=== PATIENT | female | born 1965 | race Caucasian/White ===

== ENCOUNTER 2019-02-03 18:22 | Emergency (ER) | payer MEDICARE, MEDICAID ==
[~2019-02-03] VITALS: Ht 177.8 cm; Wt 99.8 kg
--- NOTE | 2019-02-03 18:57 | PHYS DOC ---
Adult General Chief Complaint Chief Complaint: NAUSEA/VOMITING/DIARRHEA HPI HPI 53-year-old female presents with nausea and vomiting for the last 2 days. She had some vomiting yesterday, but today she is unable to keep anything down including water and her Zofran tablets. If she swallows almost anything, she started vomiting. She has had chills, but no measured fever. The patient has ileostomy bag for the last 30 years and it is working properly. She is not be complaints with it. She has had an intermittent cough, but she is a smoker with COPD diagnosis. She denies change in sputum. Review of Systems Review of Systems Constitutional: Denies fever or chills [] Eyes: Denies change in visual acuity, redness, or eye pain [] HENT: Denies nasal congestion or sore throat [] Respiratory: Denies cough or shortness of breath [] Cardiovascular: No additional information not addressed in HPI [] GI: Generalized abdominal pain, nausea, vomiting. [] : Denies dysuria or hematuria [] Musculoskeletal: Denies back pain or joint pain [] Integument: Denies rash or skin lesions [] Neurologic: Denies headache, focal weakness or sensory changes [] Endocrine: Denies polyuria or polydipsia [] All other systems were reviewed and found to be within normal limits, except as documented in this note. Current Medications Current Medications Current Medications Medications (Trade) Dose Ordered Sig/Suzette Start Time Stop Time Status Last Admin Dose Admin Ondansetron HCl (Zofran) 4 mg 1X ONCE 02/03/19 18:30 02/03/19 18:31 UNV Sodium Chloride 1,000 ml @ 1,000 mls/hr 1X ONCE 02/03/19 18:30 02/03/19 19:29 UNV Physical Exam Physical Exam Constitutional: Well developed, well nourished, mild acute distress, non-toxic appearance. [] HENT: Normocephalic, atraumatic, bilateral external ears normal, oropharynx moist, no oral exudates, nose normal. [] Eyes: PERRLA, EOMI, conjunctiva normal, no discharge. [] Neck: Normal range of motion, no tenderness, supple, no stridor. [] Cardiovascular:Heart rate regular rhythm, no murmur [] Lungs & Thorax: Bilateral breath sounds clear to auscultation [] Abdomen: Bowel sounds normal, soft, no tenderness, no masses, no pulsatile masses. Ostomy bag in place and functioning with no complications[] Skin: Warm, dry, no erythema, no rash. [] Back: No tenderness, no CVA tenderness. [] Extremities: No tenderness, no cyanosis, no clubbing, ROM intact, no edema. [] Neurologic: Alert and oriented X 3, normal motor function, normal sensory function, no focal deficits noted. [] Psychologic: Affect normal, judgement normal, mood normal. [] EKG EKG [] Radiology/Procedures Radiology/Procedures [] Course & Med Decision Making Course & Med Decision Making Pertinent Labs and Imaging studies reviewed. (See chart for details) The patient's labs are significant for elevated white count of 15. She had evidence of some hemoconcentration in general. I gave her a liter of normal saline, 4 mg of Zofran IV, an additional 10 mg of Compazine IV to control vomiting. After her fluids, she was feeling much better. She had a by mouth challenge and was able to orally rehydrate. She would like to go home. She already has Zofran at home and will take it on a scheduled basis to control her vomiting for the next day or 2. If she is unable to keep down fluids, she will return to the emergency room. She is stable for discharge at this time. She likely has a viral illness. [] Dragon Disclaimer Dragon Disclaimer This electronic medical record was generated, in whole or in part, using a voice recognition dictation system. Departure Departure: Impression: Primary Impression: Viral gastritis Additional Impression: Nausea & vomiting Disposition: 01 HOME, SELF-CARE Condition: IMPROVED Referrals: PCPTYREL (PCP) Patient Instructions: Nausea and Vomiting, [id number] Problem Qualifiers Additional Impression: Nausea & vomiting Vomiting type: unspecified Vomiting Intractability: intractable Qualified Codes: R11.2 - Nausea with vomiting, unspecified VIVEK VALDEZ DO Feb 03, 2019 18:57
[2019-02-03] MEDS: IV NORMAL SALINE 1,000ML 1,000 ML IV ONE (19:03)
[2019-02-03] MEDS: ONDANSETRON PF 4 MG/2 ML VIAL. IVP ONE (19:03)
[2019-02-03 19:26] LABS: BASO # 0.1 x10^3/uL (0.0-0.2); BASO % 1 % (0-3); EOS # 0.3 x10^3/uL (0.0-0.7); EOS % 2 % (0-3); HEMATOCRIT 47.9 % (36.0-47.0); HEMOGLOBIN 15.7 g/dL (12.0-15.5); LYMPH # 1.1 x10^3/uL (1.0-4.8); LYMPH % 8 % (24-48); MEAN CORPUSCULAR HEMOGLOBIN 28 pg (25-35); MEAN CORPUSCULAR HGB CONC 33 g/dL (31-37); MEAN CORPUSCULAR VOLUME 87 fL (79-100); MONO # 1.2 x10^3/uL (0.0-1.1); MONO % 8 % (0-9); NEUT # 12.3 x10^3uL (1.8-7.7); NEUT % 82 % (31-73); PLATELET COUNT 307 x10^3/uL (140-400); RED BLOOD COUNT 5.53 x10^6/uL (3.50-5.40); RED CELL DISTRIBUTION WIDTH 16.3 % (11.5-14.5)
[2019-02-03] MEDS ORDERED: PROCHLORPERAZINE 10 MG/2 ML VIAL. ONE (20:05)
[2019-02-03 20:07] LABS: CALCIUM 8.7 mg/dL (8.5-10.1); CREATININE 1.5 mg/dL (0.6-1.0); GFR 36.2; POTASSIUM 3.8 mmol/L (3.5-5.1)
[2019-02-03] MEDS: PROCHLORPERAZINE 10 MG/2 ML VIAL. IV ONE (20:08)
[2019-02-03 20:13] LABS: ALBUMIN 3.3 g/dL (3.4-5.0); ALBUMIN/GLOBULIN RATIO 0.8 (1.0-1.7); TOTAL BILIRUBIN 0.4 mg/dL (0.2-1.0); TOTAL PROTEIN 7.4 g/dL (6.4-8.2)
[2019-02-03 21:01] VITALS: BP 125/72
== END 2019-02-03 21:04 | disposition home or self-care (01) ==
LOC: ER 18:22
DX: A08.4 Viral intestinal infection, unspecified (principal)
CPT/HCPCS: 36415; 80053; 85025; 85610; 85730; 96361; 96374; 96375; 99284; J0780; J2405; J7030

== ENCOUNTER 2019-07-08 20:41 | Observation (INO) | payer MEDICARE, MEDICAID ==
[~2019-07-08] VITALS: Ht 167.6 cm; Wt 102.0 kg
--- NOTE | 2019-07-08 20:48 | PHYS DOC ---
Past History Past Medical History: Anxiety, Arthritis, Bronchitis, COPD, GERD, Hypertension, IBS, Other Past Medical History Familial Adenomatous Polyposis Past Surgical History: Colectomy, Other Additional Past Surgical Histo: Ileostomy, reconstructive surgery, peritonitis, ulcer on left leg for 1 mon Smoking: Cigarettes Alcohol Use: Occasionally Drug Use: Marijuana General Adult HPI: HPI: ".. I kavon hurting to day... Actually started yesterday,,,.. Been seeing... Vijay for care but now seen Dr. Mariee... I have been really nauseated and vomiting today.. Patient is a 54 year old female who presents with above hx and complaints of nausea and vomiting. Subjective complaints of fever and chills. Does have a nonproductive cough but just recently quit smoking. Patient has extensive medical history with recurrent episodes of ileus, bronchitis, COPD, DVTs, pulmonary embolisms, obesity, anemia, and deconditioning. Patient had cholecystectomy in 1993 for Familial Adenomatous Polyposis. Patient denies any intake of bad food. No recent travel outside the [facility]. No specific ill contacts. Does have a strong family history with mother, sister, brother, grandchildren all have Familial Adenomatous Polyposis. Patient currently follows with Dr. Bentley. Review of Systems: Review of Systems: Constitutional: Denies fever or chills Eyes: Denies change in visual acuity HENT: Denies nasal congestion or sore throat Respiratory: Denies cough or shortness of breath Cardiovascular: Denies chest pain or edema GI: Complains of abdominal pain, nausea, vomiting,. Denies bloody stools or diarrhea : Denies dysuria Musculoskeletal: Denies back pain or joint pain Integument: Denies rash Neurologic: Denies headache, focal weakness or sensory changes Endocrine: Denies polyuria or polydipsia Lymphatic: Denies swollen glands Psychiatric: Denies depression or anxiety Heart Score: HEART Score for Chest Pain: HEART Score for Chest Pain Response (Comments) Value History Slighlty/Non-Suspicious 0 ECG Nonspecific Repolarizatio 1 Age >45 - < 65 1 Risk Factors 1 or 2 Risk Factors 1 Troponin < Normal Limit 0 Total 3 Risk Factors: Risk Factors: DM, Current or recent (<one month) smoker, HTN, HLP, family history of CAD, obesity. Risk Scores: Score 0 - 3: 2.5% MACE over next 6 weeks - Discharge Home Score 4 - 6: 20.3% MACE over next 6 weeks - Admit for Clinical Observation Score 7 - 10: 72.7% MACE over next 6 weeks - Early Invasive Strategies Family History: Family History: Multiple family members Familial Adenomatosis Polyposis Current Medications: Current Meds: See nursing for home meds Allergies: Allergies: Allergies Coded Allergies Type Severity Reaction Last Updated Verified Penicillins Allergy Intermediate 02/03/19 Yes Physical Exam: PE: Constitutional: Moderate acute distress, non-toxic appearance. [] HENT: Normocephalic, atraumatic, bilateral external ears normal, oropharynx dry, no oral exudates, nose normal. [] Eyes: PERRLA, EOMI, conjunctiva normal, no discharge. [] Neck: Normal range of motion, no tenderness, supple, no stridor. [] Cardiovascular: Tachycardia heart rate regular rhythm, no murmur [] PMI to the left Lungs & Thorax: Bilateral breath sounds equal at apex with scattered wheezes on auscultation [] Abdomen: Bowel sounds hyperactive, soft, generalized tenderness, distention, tympanic,, no masses, no pulsatile masses. Multiple surgery scars. Ileostomy, does have rebound to the left upper mid quadrant. Skin: Warm, dry, no erythema, no rash. [Poor turgor] Back: No tenderness, no CVA tenderness. [] Extremities: No tenderness, no cyanosis, no clubbing, ROM intact, venous stasis and lower leg edema. [No true psoas sign.] Neurologic: Alert and oriented X 3, n moves extremities on request, does have distal sensory,, no focal deficits noted. [] Psychologic: Affect anxious, judgement normal, mood normal. [] EKG: EKG: My interpretation EKG shows a sinus rhythm at 92 bpm. There is bimodal P waves. Right axis. No findings of acute STEMI of contralateral changes. [] Radiology/Procedures: Radiology/Procedures: [][address] [address] IMAGING REPORT Signed PATIENT: SARAH CARRILLO IACCOUNT: [id number] : 1965 LOCATION: ER AGE: 54 SEX: F EXAM STATUS: REG ER ORD. PHYSICIAN: LIZZY RIOS MD REASON: Omni 240,30ml PO.Ileus.Hx Ileostomy PROCEDURE: CT ABD PEL W/ORAL CONTRST ONLY EXAM: CT ABDOMEN/PELVIS WITHOUT CONTRAST. HISTORY: Ileus. TECHNIQUE: Computed tomography of the abdomen and pelvis was performed without intravenous contrast. One or more of the following individualized dose reduction techniques were utilized for this examination: 1. Automated exposure control. 2. Adjustment of the mA and/or kV according to patient size. 3. Use of iterative reconstruction technique. COMPARISON: None. FINDINGS: Lung windows through the visualized portions of the bases reveal mild atelectasis. Bone windows reveal no suspicious lesions. Hypoattenuation of the hepatic parenchyma is consistent with at least mild diffuse hepatic steatosis. The spleen, pancreas, adrenal glands, gallbladder and kidneys are unremarkable without contrast. A calcification along the left proximal ureter appears mural rather than intraluminal. The colon is been resected with the right lower quadrant ileostomy. An ileal J pouch may be diverted. The small bowel is relatively clumped within the midline abdomen, with multiple loops are adherent to the anterior abdominal wall. Multiple angulated loops in the left of midline indicated adhesions. Contrast has progressed through the mid jejunum but not beyond that. Multiple partial transition points are noted, but there is some gas distally. Venous collaterals are noted bilaterally along the anterior abdominal wall. Another is noted in the left retroperitoneum. IMPRESSION: 1. The majority of the small bowel is relatively clumped in the midabdomen, consistent with extensive adhesions. This results in multiple partial transition points. There is no clear high-grade obstruction. Correlate with ostomy output. 2. Correlate for total colectomy with an ileal J-pouch which is now diverted to a right lower quadrant ostomy. 3. Diffuse hepatic steatosis. Electronically signed by: Luis Angel Feldman MD (07/09/2019 1:50 AM) [facility] DICTATED AND SIGNED BY: VINCE FELDMAN MD DATE: 07/09/19149 CC: CHARBEL BENTLEY MD; LIZZY RIOS MD ~ [address] [address] IMAGING REPORT Signed PATIENT: SARAH CARRILLO IACCOUNT: [id number] : 1965 LOCATION: ER AGE: 54 SEX: F EXAM STATUS: REG ER ORD. PHYSICIAN: LIZZY RIOS MD REASON: NAUSEA,VOMITING.HX ILEOSTOMY PROCEDURE: ACUTE ABDOMEN SERIES EXAM: Abdomen acute complete. HISTORY: Nausea, vomiting and pain. COMPARISON: None. FINDINGS: A frontal view the chest and frontal upright and supine views of the abdomen are obtained. There is no infiltrate, pleural effusion or pneumothorax. The heart is normal in size. There are nonspecific air-filled loops of bowel throughout the abdomen. There is no free air. There is no transition point to suggest obstruction. There are surgical clips overlying the pelvis. IMPRESSION: 1. Prominent air-filled loops of bowel throughout the abdomen. There is no transition point to suggest obstruction. 2. No acute pulmonary finding. Electronically signed by: Trinidad Rosado MD (07/08/2019 9:38 PM) [facility] DICTATED AND SIGNED BY: TRINIDAD ROSADO MD DATE: 07/08/192137 CC: CHARBEL BENTLEY MD; LIZZY RIOS MD ~ Course & Med Decision Making: Course & Med Decision Making Pertinent Labs and Imaging studies reviewed. (See chart for details) Pt.admitted to Dr. Bentley.. Plan to keep patient n.p.o. for at least 24 hours and slowly advance clear fluids. Advised patient that she may need transfer to [facility] or hospital that can supply surgical support if this partially ileus does not clear. Patient insisting on at least attempting to be admitted here first. Patient states she has had multiple episodes of bowel Ileus, all have cleared with npo, or clear fluids and IV hydration. Impression: 1. Abdomen Pain 2. Leukocytosis 19.3 with 78 segs 3. Therapeutic INR 2.9 4. Mild dehydration 5. Creatinine 1.8 6. Elevated lactic acid 2.3 7. Nausea and vomiting 8. Partial Small Bowel Ileus- Multiple Adhesions 9. Dehydration [] Dragon Disclaimer: Dragon Disclaimer: This electronic medical record was generated, in whole or in part, using a voice recognition dictation system. Departure Departure: Disposition: 01 HOME/RESIDENCE PRIOR TO ADM Condition: STABLE Referrals: CHARBEL BENTLEY MD (PCP) Shiva Disclaimer This chart was dictated in whole or in part using Voice Recognition software in a busy, high-work load, and often noisy Emergency Department environment. It m ay contain unintended and wholly unrecognized errors or omissions. Dragon Disclaimer This chart was dictated in whole or in part using Voice Recognition software in a busy, high-work load, and often noisy Emergency Department environment. It may contain unintended and wholly unrecognized errors or omissions. Dragon Disclaimer This chart was dictated in whole or in part using Voice Recognition software in a busy, high-work load, and often noisy Emergency Department environment. It may contain unintended and wholly unrecognized errors or omissions. LIZZY RIOS MD July 08, 2019 20:48
[2019-07-08] MEDS ORDERED: ONDANSETRON PF 4 MG/2 ML VIAL. IVP ONE (21:00)
[2019-07-08] MEDS ORDERED: KETOROLAC 30 MG/ML VIAL. IVP ONE (21:00)
[2019-07-08] MEDS ORDERED: IV RINGERS SOLUTION,LACTATED 1,000 ML IV SCH (21:00)
[2019-07-08] MEDS ORDERED: FAMOTIDINE 20 MG/2 ML VIAL IVP ONE (21:00)
--- NOTE | 2019-07-08 21:02 | EKG ---
[address] [address] Test Date: 2019-07-08 Test Time: 20:58:08 Pat Name: SARAH CARRILLO Department: Room: Gender: F Advisor Consultant: : 1965 Requested By: LIZZY RIOS Order Number: [id number] Reading MD: Rj Pierre Measurements Intervals Biddle Rate: 92 P: 15 MS: 162 QRS: 102 QRSD: 78 T: 56 QT: 362 QTc: 453 Interpretive Statements SINUS RHYTHM LEFT ATRIAL ABNORMALITY Electronically Signed On 07-10-2019 15:46:53 CDT by Rj Pierre
--- NOTE | 2019-07-08 21:41 | RAD ---
EXAM: Abdomen acute complete. HISTORY: Nausea, vomiting and pain. COMPARISON: None. FINDINGS: A frontal view the chest and frontal upright and supine views of the abdomen are obtained. There is no infiltrate, pleural effusion or pneumothorax. The heart is normal in size. There are nonspecific air-filled loops of bowel throughout the abdomen. There is no free air. There is no transition point to suggest obstruction. There are surgical clips overlying the pelvis. IMPRESSION: 1. Prominent air-filled loops of bowel throughout the abdomen. There is no transition point to suggest obstruction. 2. No acute pulmonary finding. Electronically signed by: Trinidad Sandhu MD (07/08/2019 9:38 PM) [facility]
[2019-07-08 22:11] LABS: BASO % 0 % (0-3); CALCIUM 9.6 mg/dL (8.5-10.1); CREATININE 1.8 mg/dL (0.6-1.0); EOS # 0.1 x10^3/uL (0.0-0.7); EOS % 1 % (0-3); GFR 29.2; HEMATOCRIT 47.4 % (36.0-47.0); HEMOGLOBIN 15.5 g/dL (12.0-15.5); LYMPH # 1.1 x10^3/uL (1.0-4.8); LYMPH % 6 % (24-48); MEAN CORPUSCULAR HEMOGLOBIN 29 pg (25-35); MEAN CORPUSCULAR HGB CONC 33 g/dL (31-37); MEAN CORPUSCULAR VOLUME 90 fL (79-100); MONO # 1.6 x10^3/uL (0.0-1.1); MONO % 9 % (0-9); NEUT # 16.4 x10^3uL (1.8-7.7); NEUT % 85 % (31-73); PLATELET COUNT 322 x10^3/uL (140-400); RED BLOOD COUNT 5.25 x10^6/uL (3.50-5.40); RED CELL DISTRIBUTION WIDTH 17.2 % (11.5-14.5); WHITE BLOOD COUNT 19.3 x10^3/uL (4.0-11.0)
[2019-07-08 22:23] LABS: ALBUMIN 3.9 g/dL (3.4-5.0); DIRECT BILIRUBIN 0.2 mg/dL (0.0-0.2); TOTAL BILIRUBIN 0.9 mg/dL (0.2-1.0); TOTAL PROTEIN 8.4 g/dL (6.4-8.2)
[2019-07-08 22:47] LABS: % BANDS 6 % (0-9); % EOS 1 % (0-5); % LYMPHS 3 % (24-48); % MONOS 12 % (0-10); % SEGS 78 % (35-66)
[2019-07-08 22:48] LABS: PLT ESTIMATE ADEQUATE (ADEQUATE)
[2019-07-08] MEDS ORDERED: IOHEXOL 240 MG/ML 50ML VIAL. ONE (23:34)
[2019-07-08] MEDS ORDERED: IV RINGERS SOLUTION,LACTATED 1,000 ML IV ONE (23:45)
[2019-07-09 00:12] LABS: BARBITURATES NEG (NEG); BENZODIAZEPINES POS (NEG); CANNABINOIDS POS (NEG); COCAINE NEG (NEG); METHADONE NEG (NEG); OPIATES NEG (NEG); PHENCYCLIDINE NEG (NEG)
[2019-07-09 00:14] LABS: AMPHETAMINE/METHAMPHETAMINE NEG (NEG)
[2019-07-09 00:18] LABS: BACTERIA,URINE FEW /HPF (0-FEW); BILIRUBIN,URINE NEG (NEG); CLARITY,URINE HAZY; COLOR,URINE YELLOW; GLUCOSE,URINE NEG (NEG); NITRITE,URINE POS (NEG); RBC,URINE 0 /HPF (0-2); SQUAMOUS EPITHELIAL CELL,UR MOD /LPF; WBC,URINE OCC /HPF (0-4)
--- NOTE | 2019-07-09 01:53 | RAD ---
EXAM: CT ABDOMEN/PELVIS WITHOUT CONTRAST. HISTORY: Ileus. TECHNIQUE: Computed tomography of the abdomen and pelvis was performed without intravenous contrast. One or more of the following individualized dose reduction techniques were utilized for this examination: 1. Automated exposure control. 2. Adjustment of the mA and/or kV according to patient size. 3. Use of iterative reconstruction technique. COMPARISON: None. FINDINGS: Lung windows through the visualized portions of the bases reveal mild atelectasis. Bone windows reveal no suspicious lesions. Hypoattenuation of the hepatic parenchyma is consistent with at least mild diffuse hepatic steatosis. The spleen, pancreas, adrenal glands, gallbladder and kidneys are unremarkable without contrast. A calcification along the left proximal ureter appears mural rather than intraluminal. The colon is been resected with the right lower quadrant ileostomy. An ileal J pouch may be diverted. The small bowel is relatively clumped within the midline abdomen, with multiple loops are adherent to the anterior abdominal wall. Multiple angulated loops in the left of midline indicated adhesions. Contrast has progressed through the mid jejunum but not beyond that. Multiple partial transition points are noted, but there is some gas distally. Venous collaterals are noted bilaterally along the anterior abdominal wall. Another is noted in the left retroperitoneum. IMPRESSION: 1. The majority of the small bowel is relatively clumped in the midabdomen, consistent with extensive adhesions. This results in multiple partial transition points. There is no clear high-grade obstruction. Correlate with ostomy output. 2. Correlate for total colectomy with an ileal J-pouch which is now diverted to a right lower quadrant ostomy. 3. Diffuse hepatic steatosis. Electronically signed by: Luis Angel Feldman MD (07/09/2019 1:50 AM) [facility]
[2019-07-09] MEDS ORDERED: ACETAMINOPHEN 325 MG TABLET PO PRN (02:45)
[2019-07-09] MEDS ORDERED: ONDANSETRON PF 4 MG/2 ML VIAL. IVP PRN (02:45)
[2019-07-09] MEDS ORDERED: MORPHINE SULFATE 10 MG/ML SYRINGE. SQ PRN (02:45)
[2019-07-09] MEDS ORDERED: IPRATRPIUM/ALBUTEROL 0.5/2.5MG 3 ML NEBU. ONE (03:02)
[2019-07-09 03:50] VITALS: BP 98/70
[2019-07-09] MEDS: IV RINGERS SOLUTION,LACTATED 1,000 ML IV SCH ×3 (03:53→12:45)
[2019-07-09] MEDS ORDERED: BUPR-192 PO (04:06)
[2019-07-09] MEDS ORDERED: ONDA4TAB12 SL (04:06)
[2019-07-09] MEDS ORDERED: SERT50TA8 PO (04:06)
[2019-07-09] MEDS ORDERED: FURO20TA3 PO (04:06)
[2019-07-09] MEDS ORDERED: CETI10TA16 PO (04:06)
[2019-07-09] MEDS ORDERED: CYCL-331 PO (04:06)
[2019-07-09] MEDS ORDERED: PANT20TA3 PO (04:06)
[2019-07-09] MEDS ORDERED: PRAV20TA2 PO (04:06)
[2019-07-09] MEDS ORDERED: WARF1TAB74 PO (04:06)
[2019-07-09] MEDS ORDERED: GABA100C81 PO (04:06)
[2019-07-09] MEDS ORDERED: ASPI81TA59 PO (04:06)
[2019-07-09] MEDS ORDERED: TAMS0.4C97 PO (04:06)
[2019-07-09] MEDS ORDERED: WARF-78 PO (04:06)
[2019-07-09] MEDS ORDERED: GABA100C6 PO (04:06)
[2019-07-09] MEDS ORDERED: ALBU2.5V14 NEB (04:08)
[2019-07-09] MEDS: IPRATRPIUM/ALBUTEROL 0.5/2.5MG 3 ML NEBU. NEB SCH ×2 (04:27→09:25)
[2019-07-09 05:01] VITALS: BP 111/72
[2019-07-09 10:31] VITALS: BP 118/76
--- NOTE | 2019-07-09 22:05 | HP ---
ADMIT DATE: 07/09/2019 HISTORY OF PRESENT ILLNESS: A 54-year-old female who came in with severe nausea and vomiting. The patient also has had some fever and chills, but basically had a nonproductive cough, recently quit smoking; however, she says she has been drinking heavily lately and as a result of that became increasingly dehydrated and experienced severe abdominal pain. She came in for basically fluids and hydration for her abdominal pain. PAST MEDICAL HISTORY: The patient has had heart attacks, coronary artery disease, vascular surgery, ____ anticoagulant therapy, ____ hypertension, DVT, COPD. She has an ileostomy, change in bowel patterns, hysterectomy, alcohol abuse, depression, smoking and smoking exposure. She has had history of DVT, Radha filter in her leg. FAMILY HISTORY: Positive for heart disease and aneurysms as well as strokes. ALLERGIES: PENICILLIN. MEDICATIONS: The reconciliation of medications was noted in the chart as noted above including Zyrtec, albuterol, Flomax, cyclobenzaprine, warfarin, pravastatin, aspirin, and gabapentin. SOCIAL HISTORY: The patient has a [id number] history of smoking. Occasionally goes on binge drinking. CODE STATUS: Full code. REVIEW OF SYSTEMS: Positive for nausea and vomiting. Otherwise, basically unremarkable. Denies any headaches, visual changes. Does have abdominal pain. PHYSICAL EXAMINATION: GENERAL: This is a pleasant white female, moderate amount of discomfort. VITAL SIGNS: Blood pressure 98/70, respiratory rate 18, pulse 100, afebrile. HEENT: The patient's head was atraumatic, normocephalic. Eyes: PERRLA without jaundice. The mouth and throat: Normal. NECK: Supple. LUNGS: Diminished, but clear. CARDIOVASCULAR: Regular sinus rhythm, S1, S2, without murmur, rub, or extra heart sounds. ABDOMEN: Soft, nontender, no rebound or guarding. Positive bowel sounds. Ileostomy in place. EXTREMITIES: No clubbing, cyanosis or edema. NEUROLOGIC: Intact. LABORATORY DATA: The patient's labs were reviewed. She did have an elevated white count. The patient was extremely dehydrated. Toxicology report shows use of marijuana as well as benzos. The patient was admitted and placed on IV hydration and the like. The patient was admitted and placed on IV fluids. The patient's CT scan, no obvious lesion. The patient did note on her CT scan multiple adhesions. IMPRESSION: Therefore of possible ileus with small-bowel obstruction, adhesions, history of alcohol abuse and other drug usage. The patient's dehydration was the cause of most of her problems. The patient's INR was 2.9. PLAN: The patient will be monitored carefully, brought in as an outpatient as well. ____ in for observation, placed on IV fluids and rehydrated. The patient felt remarkably better and was able to eat and drink later on. CHARBEL BENTLEY MD DR: MELISSA/manoj JOB#: [id number] / [id number]
== END 2019-07-09 12:55 | disposition home or self-care (01) ==
LOC: ER 20:41 → 1 SOUTH 07-09 02:30 → INTOOBSV 07-09 02:30
PROVIDERS: ADMIT Family Medicine; ATTEND Family Medicine
DX: K56.7 Ileus, unspecified (principal); K56.50 Intestinal adhesions [bands], unspecified as to partial versus complete obstruction; F41.9 Anxiety disorder, unspecified; K21.9 Gastro-esophageal reflux disease without esophagitis; R11.2 Nausea with vomiting, unspecified; F32.9 Major depressive disorder, single episode, unspecified; K58.9 Irritable bowel syndrome, unspecified; J44.9 Chronic obstructive pulmonary disease, unspecified; E66.9 Obesity, unspecified; M19.90 Unspecified osteoarthritis, unspecified site; D72.829 Elevated white blood cell count, unspecified; E86.0 Dehydration; I25.10 Atherosclerotic heart disease of native coronary artery without angina pectoris; I10 Essential (primary) hypertension; K76.0 Fatty (change of) liver, not elsewhere classified; Z86.718 Personal history of other venous thrombosis and embolism; Z87.891 Personal history of nicotine dependence; Z86.711 Personal history of pulmonary embolism; Z88.0 Allergy status to penicillin; Z68.36 Body mass index [BMI] 36.0-36.9, adult; Z79.899 Other long term (current) drug therapy
CPT/HCPCS: 36415; 74022; 74176; 80048; 80076; 80307; 81001; 82150; 82550; 83605; 83690; 84484; 85007; 85025; 85610; 85730; 87040; 87086; 87205; 93005; 94640; 96361; 96365; 96366; 96368; 96375; 99285; G0378; G0379; J1885; J1956; J2405; J3490; J7120

== ENCOUNTER 2020-03-06 00:11 | Emergency (ER) | payer MEDICARE, MEDICAID ==
[~2020-03-06] VITALS: Ht 167.6 cm; Wt 102.0 kg
[~2020-03-06 00:11] MED LIST changes: -ORPH-16 PO; -PRED20TA PO
[2020-03-06] MEDS ORDERED: ORPHENADRINE CITRATE 60 MG/2 ML VIAL. IM ONE (00:45)
[2020-03-06] MEDS ORDERED: DEXAMETHASONE 4 MG TABLET PO ONE (00:45)
[2020-03-06] MEDS ORDERED: PRED20TA PO (00:48)
[2020-03-06] MEDS ORDERED: ORPH-16 PO (00:48)
--- NOTE | 2020-03-06 00:48 | PHYS DOC ---
Past History Past Medical History: Anxiety, Arthritis, Bronchitis, COPD, GERD, Hypertension, IBS, Other Additional Past Medical Histor: PE Past Surgical History: Colectomy, Other Additional Past Surgical Histo: Ileostomy, reconstructive surgery, peritonitis, ulcer on left leg for 1 mon Smoking: Quit Greater Than 1 Year Alcohol Use: Occasionally Drug Use: Marijuana General Adult EDM: Chief Complaint: OTHER COMPLAINTS HPI: HPI: 54-year-old female presents with report of "pain all over ". Patient reports she has a history of arthritis and seems to be experiencing exacerbation of her chronic pain to her right shoulder, back, right knee, and left wrist. Patient reports she was sent by her PCP to follow-up with a specialist in arthritis at but does not have an appointment until 05/15/2020. Patient reports she took Tylenol at 1730 without improvement. Reports is unable to take anti-inflammatories due to use of Coumadin. Reports history of DVTs. Denies recent trauma. Review of Systems: Review of Systems: Constitutional: Denies fever or chills Eyes: Denies redness or eye pain HENT: Denies nasal congestion or sore throat Respiratory: Denies cough or shortness of breath Cardiovascular: Denies chest pain or palpitations GI: Denies abdominal pain, nausea, or vomiting : Denies dysuria or hematuria Musculoskeletal: Reports right shoulder pain, right knee pain, left wrist pain, and back pain Integument: Denies rash or skin lesions Neurologic: Denies headache, focal weakness or sensory changes Complete systems were reviewed and found to be within normal limits, except as documented in this note. Allergies: Allergies: Allergies Coded Allergies Type Severity Reaction Last Updated Verified Penicillins Allergy Intermediate 02/03/19 Yes Physical Exam: PE: Constitutional: Well developed, well nourished, no acute distress, non-toxic appearance HENT: Normocephalic, atraumatic Eyes: Conjunctiva normal, no discharge Neck: Normal range of motion, no tenderness, supple Lungs & Thorax: No respiratory distress, equal chest rise and fall Abdomen: Soft, no tenderness Skin: Warm, dry, no erythema, no rash Back: No midline tenderness, no CVA tenderness Extremities: No deformity, joints appear stable, reports pain to right shoulder, right knee, and left wrist Neurologic: Alert and oriented X 3, no focal deficits noted Psychologic: Affect normal, judgment normal EKG: EKG: [] Radiology/Procedures: Radiology/Procedures: [] Course & Med Decision Making: Course & Med Decision Making Patient presents with chronic pain which she reports is secondary to arthritis exacerbation. No history of recent trauma. Reports is unable to take anti- inflammatories secondary to use of Coumadin. Pain addressed with oral steroid and IM Norflex. Patient stable for discharge with outpatient follow-up with PCP/arthritis doctor. Discussed findings and plan with patient, who acknowledges understanding and agreement. Shiva Disclaimer: Shiva Disclaimer: This electronic medical record was generated, in whole or in part, using a voice recognition dictation system. Departure Departure: Impression: Primary Impression: Arthritis Additional Impression: Chronic pain Qualified Codes: G89.29 - Other chronic pain Disposition: DC HOME SELF CARE/HOMELESS Condition: STABLE Referrals: CHARBEL BENTLEY MD (PCP) Patient Instructions: Arthritis, Nonspecific, [id number], Chronic Pain Management Additional Instructions: Please follow up closely with your doctor regarding your chronic pain issues. Scripts Orphenadrine Citrate (ORPHENADRINE CITRATE) 100 Mg Tablet.er 1 TAB PO BID PRN for MUSCLE PAIN, #14 TAB 0 Refills Prov: CUONG HICKEY DO 03/06/20 Prednisone (PREDNISONE) 20 Mg Tablet 2 TAB PO DAILY for Inflammation, #8 TAB Start this medication tomorrow, Tuesday03/07/20 Prov: CUONG HICKEY DO 03/06/20 CUONG HICKEY DO Mar 06, 2020 00:48
[2020-03-06 01:20] VITALS: BP 144/84
== END 2020-03-06 01:20 | disposition home or self-care (01) ==
LOC: ER 00:11
DX: M19.90 Unspecified osteoarthritis, unspecified site (principal); G89.29 Other chronic pain; M25.511 Pain in right shoulder; M25.561 Pain in right knee; M25.532 Pain in left wrist; M54.89 Other dorsalgia; J44.9 Chronic obstructive pulmonary disease, unspecified; K21.9 Gastro-esophageal reflux disease without esophagitis; I10 Essential (primary) hypertension; K58.9 Irritable bowel syndrome, unspecified; Z87.891 Personal history of nicotine dependence; Z88.0 Allergy status to penicillin
CPT/HCPCS: 96372; 99283; J2360; J8540

== ENCOUNTER → 2020-03-06 | Outpatient (CLI) | payer MEDICARE, MEDICAID ==
[~2020-03-06] MED LIST: ALBU2.5V14 NEB; ASPI81TA59 PO; BUPR150T7 PO; CETI10TA16 PO; CYCL-331 PO; FURO20TA3 PO; GABA100C6 PO; GABA100C81 PO; ONDA4TAB12 SL; ORPH-16 PO; PANT20TA4 PO; PRAV20TA2 PO; PRED20TA PO; SERT50TA8 PO; TAMS0.4C97 PO; WARF1TAB2 PO; WARF5TAB2 PO
[2020-03-06 01:20] VITALS: BP 144/84
--- NOTE | 2020-03-06 15:03 | RAD ---
XR ELBOW COMPLETE 3+ VIEW DATE: 03/06/2020 10:59 AM INDICATION: ELBOW PAIN / Spl. Instructions: / History: COMPARISON: None. FINDINGS: Right: There is no evidence of acute fracture or dislocation. The joint spaces are normal. There is n o joint effusion. Left: There is no evidence of acute fracture or dislocation. The joint spaces are normal. There is no joint effusion. IMPRESSION: Normal exam Electronically signed by: Arya Stern MD (03/06/2020 3:00 PM) [id number]
== END ==
LOC: DXRAD 10:47
PROVIDERS: ATTEND Nurse Practitioner Family
DX: M19.022 Primary osteoarthritis, left elbow (principal); M19.021 Primary osteoarthritis, right elbow; M25.521 Pain in right elbow; M25.522 Pain in left elbow
CPT/HCPCS: 73080

== ENCOUNTER → 2020-04-18 | Outpatient (CLI) | payer MEDICARE, MEDICAID ==
[~2020-04-18] MED LIST changes: +BARIUM SULFATE 0.1% 450 ML SUSP PO ONE; +BUPR150T21 PO; -BUPR150T7 PO; +IOHEXOL 300 MG/ML 75 ML VIAL. IV ONE; +ORPH-16 PO; +PRED20TA PO; +SERT-268 PO; -SERT50TA8 PO
--- NOTE | 2020-04-18 16:21 | RAD ---
CT enterography of the abdomen and pelvis 04/18/2020 INDICATION: Abdominal pain status post colectomy with ileostomy COMPARISON STUDY: CT of the abdomen and pelvis with oral contrast July 09, 2019 TECHNIQUE: Multidetector CT imaging of the abdomen and pelvis was performed before and after the admi nistration of IV contrast. Negative contrast agent prior to exam. FINDINGS: No acute abnormalities of the lung bases are identified. The liver and gallbladder are unremarkable in appearance. The adrenal glands spleen and pancreas are unremarkable. The bilateral kidneys are unremarkable. Surgical ligation of the IVC with a clip is not ed. There is subsequently multiple large varices extending from femoral veins extending cephalad with in the bilateral anterior abdominal wall and in the left abdomen extending cephalad to join the left renal vein. Bladder is grossly unremarkable. No free fluid or free air seen in the abdomen or pelvis. Prior colec therese noted. Rectal stump appears be present. There is a right lower quadrant ileostomy. There is a si milar distribution of bowel within the abdomen with respect to comparison study. The degree of dilata tion is less than on comparison exam. Multiple areas of angulation are seen within the bowel similar to comparison study. No haley proximal dilatation is not seen. Multiple adhesions are likely present though no definitive evidence of obstruction is seen. No abnormal mucosal enhancement or evidence of acute inflammatory changes identified. IMPRESSION: 1.Similar configuration of the bowel with respect to comparison study suggestive of adhesions. No def inite evidence of obstruction is seen. No inflammatory changes identified. 2. Ligation of the IVC with multiple prominent venous collaterals as described CT DOSING PQRS STATEMENT: One or more of the following individualized dose reduction techniques were utilized for this examinat ion: 1. Automated exposure control 2. Adjustment of the mA and/or kV according to patient size 3. Use of iterative reconstruction technique Electronically signed by: Christian Villatoro MD (04/18/2020 4:19 PM) [id number]
== END ==
LOC: CT 13:28
PROVIDERS: ATTEND Internal Medicine Gastroenterology
DX: R10.9 Unspecified abdominal pain (principal); Z90.49 Acquired absence of other specified parts of digestive tract
CPT/HCPCS: 74170; Q9967

== ENCOUNTER → 2020-09-12 | Outpatient (CLI) | payer MEDICARE, MEDICAID ==
[~2020-09-12] MED LIST changes: -BARIUM SULFATE 0.1% 450 ML SUSP PO ONE; -IOHEXOL 300 MG/ML 75 ML VIAL. IV ONE
--- NOTE | 2020-09-12 20:20 | RAD ---
Exam: CT head INDICATION: Altered mental status TECHNIQUE: Sequential axial images through the head were obtained without the administration of IV co ntrast. Exposure: One or more of the following in the visualized dose reduction techniques were utilized for this examination: 1. Automated exposure control 2. Adjustment of the MA and/or KV according to patient size 3. Use of iterative of reconstructive technique Comparisons: None FINDINGS: No focal parenchymal lesion or hemorrhage is identified. There is no midline shift or sulcal effaceme nt. No acute vascular territory infarction is identified. Norris-white distinction is preserved. The ventricular system is within normal limits without compression hydrocephalus. The basal cisterns are well maintained. The visualized portions of the paranasal sinuses and mastoid air cells are well-pneumatized. No acute fractures. IMPRESSION: No acute intracranial abnormality. Electronically signed by: Greg Rosario MD (09/12/2020 8:17 PM) NATHANAEL
[2020-09-12 20:54] LABS: BASO # 0.1 x10^3/uL (0.0-0.2); BASO % 1 % (0-3); EOS # 0.5 x10^3/uL (0.0-0.7); EOS % 6 % (0-3); HEMATOCRIT 44.6 % (36.0-47.0); HEMOGLOBIN 14.6 g/dL (12.0-15.5); LYMPH # 2.8 x10^3/uL (1.0-4.8); LYMPH % 32 % (24-48); MEAN CORPUSCULAR HEMOGLOBIN 29 pg (25-35); MEAN CORPUSCULAR HGB CONC 33 g/dL (31-37); MEAN CORPUSCULAR VOLUME 88 fL (79-100); MONO # 0.8 x10^3/uL (0.0-1.1); MONO % 10 % (0-9); NEUT # 4.5 x10^3uL (1.8-7.7); NEUT % 52 % (31-73); PLATELET COUNT 261 x10^3/uL (140-400); RED BLOOD COUNT 5.07 x10^6/uL (3.50-5.40); RED CELL DISTRIBUTION WIDTH 16.3 % (11.5-14.5); WHITE BLOOD COUNT 8.8 x10^3/uL (4.0-11.0)
[2020-09-12 20:57] LABS: CALCIUM 8.9 mg/dL (8.5-10.1); CREATININE 1.7 mg/dL (0.6-1.0); GFR 31.1; POTASSIUM 3.4 mmol/L (3.5-5.1)
== END ==
LOC: LAB 19:47
PROVIDERS: ATTEND Family Medicine
DX: G45.9 Transient cerebral ischemic attack, unspecified (principal)
CPT/HCPCS: 36415; 70450; 80048; 85025

== ENCOUNTER 2020-12-01 17:09 | Emergency (ER) | payer MEDICARE, MEDICAID ==
[~2020-12-01] VITALS: Ht 167.6 cm; Wt 86.0 kg
[2020-12-01] MEDS: IV NORMAL SALINE 1,000ML 1,000 ML IV ONE ×2 (17:30→19:24)
[2020-12-01] MEDS: ONDANSETRON PF 4 MG/2 ML VIAL. IVP ONE (17:30)
[2020-12-01 18:03] LABS: CALCIUM 10.3 mg/dL (8.5-10.1); CREATININE 2.3 mg/dL (0.6-1.0); GFR 21.9; POTASSIUM 3.7 mmol/L (3.5-5.1)
[2020-12-01 18:09] LABS: ALBUMIN/GLOBULIN RATIO 0.9 (1.0-1.7); TOTAL BILIRUBIN 0.9 mg/dL (0.2-1.0); TOTAL PROTEIN 8.4 g/dL (6.4-8.2)
--- NOTE | 2020-12-01 18:31 | PHYS DOC ---
Past History Past Medical History: Anxiety, Arthritis, Bronchitis, COPD, GERD, Hypertension, IBS, Other Additional Past Medical Histor: PE (NEGIN MCNEIL) Past Surgical History: Colectomy, Other Additional Past Surgical Histo: Ileostomy, reconstructive surgery, peritonitis, ulcer on left leg for 1 mon (NEGIN MCNEIL) Smoking: Quit Greater Than 1 Year Alcohol Use: Occasionally Drug Use: Marijuana (NEGIN MCNEIL) General Adult EDM: Chief Complaint: NAUSEA/VOMITING/DIARRHEA HPI: HPI: Patient is a 55 year old female who presents via EMS with 3 days of nausea and vomiting. Patient denies abdominal pain, fever and chills. Patient does have an ileostomy bag, which she reports has had only liquid with "brown speckles" in it. Patient reports associated decreased urination and cramping in her hands and legs. Patient states that because her symptoms began over the weekend, she planed on seeing her doctor today. She did not feel strong enough to drive, so she called EMS for evaluation here. Patient states she has had similar symptoms in the past, and has felt much better with Zofran and fluids. Patient has no other complaints at this time. (NEGIN MCNEIL) Review of Systems: Review of Systems: 12 systems reviewed. ROS negative except as mentioned in HPI. (NEGIN MCNEIL) Current Medications: Current Meds: Current Medications Medications (Trade) Dose Ordered Sig/Suzette Start Time Stop Time Status Last Admin Dose Admin Ondansetron HCl (Zofran) 4 mg 1X ONCE 12/01/20 17:30 12/01/20 17:32 DC Sodium Chloride 1,000 ml @ 1,000 mls/hr 1X ONCE 12/01/20 17:30 12/01/20 18:29 12/01/20 17:30 1,000 MLS/HR (NEGIN MCNEIL) Allergies: Allergies: Allergies Coded Allergies Type Severity Reaction Last Updated Verified Penicillins Allergy Intermediate 02/03/19 Yes (NEGIN MCNEIL) Physical Exam: PE: Constitutional: Patient appears older than stated age, but otherwise is well developed, in no acute distress, non-toxic appearance. Cardiovascular: Heart rate regular rhythm, no murmur. Lungs & Thorax: Bilateral breath sounds clear to auscultation. Abdomen: Bowel sounds normal, soft, no tenderness, no masses, no pulsatile masses. Ostomy without irritation or signs of infection. Skin: Poor turgor, other bartholomew warm, dry, no erythema, no rash. Back: No step-offs, no bony tenderness, no paraspinal tenderness, no CVA tenderness. Extremities: No tenderness, no cyanosis, no clubbing, ROM intact, no edema. Neurologic: Alert and oriented x3, normal motor function, normal sensory function, no focal deficits noted. (NEGIN MCNEIL) Current Patient Data: Labs: Laboratory Tests Test 12/01/20 17:37 Sodium Level 139 mmol/L (136-145) Potassium Level 3.7 mmol/L (3.5-5.1) Chloride Level 94 mmol/L (98-107) L Carbon Dioxide Level 36 mmol/L (21-32) H Anion Gap 9 (6-14) Blood Urea Nitrogen 21 mg/dL (7-20) H Creatinine 2.3 mg/dL (0.6-1.0) H Estimated GFR (Cockcroft-Gault) 21.9 BUN/Creatinine Ratio 9 (6-20) Glucose Level 123 mg/dL (70-99) H Calcium Level 10.3 mg/dL (8.5-10.1) H Total Bilirubin 0.9 mg/dL (0.2-1.0) Aspartate Amino Transferase (AST) 23 U/L (15-37) Alanine Aminotransferase (ALT) 31 U/L (14-59) Alkaline Phosphatase 92 U/L (46-116) Total Protein 8.4 g/dL (6.4-8.2) H Albumin 4.0 g/dL (3.4-5.0) Albumin/Globulin Ratio 0.9 (1.0-1.7) L Vital Signs: Vital Signs Date Time Temp Pulse Resp B/P (MAP) Pulse Ox O2 Delivery O2 Flow Rate FiO2 12/01/20 17:16 98.3 87 16 145/93 (110) 97 Room Air (NEGIN MCNEIL) Heart Score: C/O Chest Pain: No (NEGIN MCNEIL) Course & Med Decision Making: Course & Med Decision Making Pertinent Labs and Imaging studies reviewed. (See chart for details) Patient has extensive medical history, but does not appear to be in any acute distress or toxic appearing. On reevaluation, patient states that she does feel much better with Zofran and fluids. I would still like to obtain a urine sample, especially considering patient's complaint of oliguria. Patient has provided urine sample without difficulty after fluid administration. Waiting on UA results. Patient care transferred to Dr. Valdez at 1652. (NEGIN MCNEIL) Course & Med Decision Making The patient's urinalysis is negative for infection. She has had 1 additional episode of vomiting in the ER. We gave her a repeat dose of Zofran and she is feeling better. She states that she is feeling stronger and better overall. She would like to go home. I believe this is reasonable. She has emptied her ostomy in the ER and believes it is working as she expects. She is stable for discharge at this time. (VIVEK VALDEZ DO) Dragon Disclaimer: Dragon Disclaimer: This electronic medical record was generated, in whole or in part, using a voice recognition dictation system. (NEGIN MCNEIL) Departure Departure: Impression: Primary Impression: Viral gastroenteritis Disposition: HOME / SELF CARE / HOMELESS Condition: IMPROVED Referrals: CHARBEL BENTLEY MD (PCP) Patient Instructions: Viral Gastroenteritis, [id number] Scripts Ondansetron (ONDANSETRON ODT) 4 Mg Tab.rapdis 1 TAB PO PRN Q6-8HRS PRN for VOMITING, #16 TAB Prov: VIVEK VALDEZ DO 12/01/20 NEGIN MCNEIL Dec 01, 2020 18:31 VIVEK VALDEZ DO Dec 01, 2020 21:36
[2020-12-01 18:33] VITALS: BP 125/86
[2020-12-01 18:37] LABS: BASO % 0 % (0-3); EOS # 0.1 x10^3/uL (0.0-0.7); EOS % 1 % (0-3); HEMATOCRIT 48.4 % (36.0-47.0); HEMOGLOBIN 15.9 g/dL (12.0-15.5); LYMPH # 2.6 x10^3/uL (1.0-4.8); LYMPH % 21 % (24-48); MEAN CORPUSCULAR HEMOGLOBIN 29 pg (25-35); MEAN CORPUSCULAR HGB CONC 33 g/dL (31-37); MEAN CORPUSCULAR VOLUME 89 fL (79-100); MONO # 1.3 x10^3/uL (0.0-1.1); MONO % 11 % (0-9); NEUT # 8.5 x10^3uL (1.8-7.7); NEUT % 68 % (31-73); PLATELET COUNT 279 x10^3/uL (140-400); RED BLOOD COUNT 5.47 x10^6/uL (3.50-5.40); RED CELL DISTRIBUTION WIDTH 14.4 % (11.5-14.5); WHITE BLOOD COUNT 12.5 x10^3/uL (4.0-11.0)
[2020-12-01 21:03] LABS: BILIRUBIN,URINE MOD (NEG); CLARITY,URINE CLEAR; COLOR,URINE YELLOW; GLUCOSE,URINE NEG (NEG); NITRITE,URINE NEG (NEG); RBC,URINE 0 /HPF (0-2); UROBILINOGEN,URINE 0.2 mg/dL (0.2 mg/dL)
[2020-12-01 21:04] LABS: BACTERIA,URINE FEW /HPF (0-FEW); SQUAMOUS EPITHELIAL CELL,UR FEW /LPF
[2020-12-01 21:06] LABS: HYALINE CASTS, URINE MANY /HPF
[2020-12-01] MEDS ORDERED: ONDA4TAB12 PO (21:35)
== END 2020-12-01 21:49 | disposition home or self-care (01) ==
LOC: ER 17:09
DX: A08.4 Viral intestinal infection, unspecified (principal); M19.90 Unspecified osteoarthritis, unspecified site; F41.9 Anxiety disorder, unspecified; J44.9 Chronic obstructive pulmonary disease, unspecified; K21.9 Gastro-esophageal reflux disease without esophagitis; I10 Essential (primary) hypertension; K58.9 Irritable bowel syndrome, unspecified; Z87.891 Personal history of nicotine dependence; Z90.49 Acquired absence of other specified parts of digestive tract; Z88.0 Allergy status to penicillin
CPT/HCPCS: 36415; 80053; 81001; 85025; 87086; 96361; 96374; 99283; J2405; J7030

== ENCOUNTER 2021-03-20 00:25 | Emergency (ER) | payer MEDICARE, MEDICAID ==
[~2021-03-20] VITALS: Ht 167.6 cm; Wt 93.9 kg
[~2021-03-20 00:25] MED LIST changes: -CYCL-331 PO; +CYCL10TA19 PO; +ONDA4TAB12 PO
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
[2021-03-20 00:45] VITALS: BP 122/75
[2021-03-20] MEDS ORDERED: ORPHENADRINE CITRATE 60 MG/2 ML VIAL. IM ONE (01:15)
[2021-03-20] MEDS ORDERED: KETOROLAC 60 MG/2 ML VIAL. IM ONE (01:15)
[2021-03-20] MEDS ORDERED: methylPREDNISolone ACETATE 40 MG/ML VIAL. IM ONE (01:15)
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
[2021-03-20 03:26] LABS: BACTERIA,URINE 0 /HPF (0-FEW); BILIRUBIN,URINE NEG (NEG); CLARITY,URINE CLEAR; COLOR,URINE YELLOW; GLUCOSE,URINE NEG (NEG); NITRITE,URINE NEG (NEG); RBC,URINE 0 /HPF (0-2); SQUAMOUS EPITHELIAL CELL,UR MANY /LPF; UROBILINOGEN,URINE 0.2 mg/dL (0.2 mg/dL); WBC,URINE OCC /HPF (0-4)
[2021-03-20] MEDS ORDERED: CYCL10TA19 PO (03:36)
[2021-03-20 03:37] LABS: BARBITURATES NEG (NEG); BENZODIAZEPINES POS (NEG); CANNABINOIDS POS (NEG); COCAINE NEG (NEG); METHADONE NEG (NEG); OPIATES NEG (NEG); PHENCYCLIDINE NEG (NEG)
[2021-03-20 03:40] LABS: AMPHETAMINE/METHAMPHETAMINE POS (NEG)
== END 2021-03-20 03:55 | disposition home or self-care (01) ==
LOC: ER 00:25
DX: M48.00 Spinal stenosis, site unspecified (principal); F41.9 Anxiety disorder, unspecified; M19.90 Unspecified osteoarthritis, unspecified site; J44.9 Chronic obstructive pulmonary disease, unspecified; K21.9 Gastro-esophageal reflux disease without esophagitis; I10 Essential (primary) hypertension; K58.9 Irritable bowel syndrome, unspecified; Z87.891 Personal history of nicotine dependence; Z86.711 Personal history of pulmonary embolism
CPT/HCPCS: 36415; 72131; 80307; 81001; 96372; 99284; J1030; J1885; J2360